=== PATIENT | male | born 1960 | race Caucasian/White ===

== ENCOUNTER 2017-07-22 09:16 | Emergency (ER) | payer OTHER ==
[2017-07-22 09:39] VITALS: BP 129/87; PULSE 80; TEMP 98.2; BMI 31.3
--- NOTE | 2017-07-22 10:22 | PDOC ---
History of Present Illness - General Chief Complaint: Injury Stated Complaint: RT FINGER INFECTION Time Seen by Provider: 07/22/17 10:05 History Source: Patient Exam Limitations: No Limitations - History of Present Illness Initial Comments: 07/22/17 10:20 CHIEF COMPLAINT: Right fourth Finger injury HISTORY OF PRESENT ILLNESS: Patient is a 56-year-old male, history of chronic pain reports on Thursday slipped and fell and jammed his right finger. Now with pain with range of motion, bruising to distal right fourth finger. Denies any other injury or complaint 07/22/17 10:22 Severity: reports: moderate Past History - Past Medical History Allergies/Adverse Reactions: Allergies Allergy/AdvReac Type Severity Reaction Status Date / Time No Known Allergies Allergy Verified 07/22/17 10:08 Home Medications: Ambulatory Orders Buprenorphine HCl/Naloxone HCl [Suboxone 8 mg-2 mg Sl Tablets] 1 each SL ASDIR 07/22/17 Gabapentin [Neurontin -] 300 mg PO Q8H 07/22/17 COPD: No DVT: No Dementia: No Diabetes: No - Surgical History Abdominal Surgery: Yes (Right inguinal) GI Surgery: Yes (Partial nephrectomy) - Immunization History Immunization Up to Date: Yes - Suicide/Smoking/Psychosocial Hx Smoking History: Current every day smoker Number of Cigarettes Smoked Daily: 10 Information on smoking cessation initiated: No Hx Alcohol Use: No Drug/Substance Use Hx: No Substance Use Type: None Review of Systems - Review of Systems Constitutional: No: Symptoms Reported HEENTM: No: Symptoms Reported Respiratory: No: Symptoms reported Cardiac (ROS): No: Symptoms Reported ABD/GI: No: Symptoms Reported : No: Symptoms Reported Musculoskeletal: Yes: Joint Pain, Joint Swelling Integumentary: Yes: Bruising. No: Erythema Neurological: No: Symptoms reported, Paresthesia, Tingling, Tremors All Other Systems: Reviewed and Negative *Physical Exam - Vital Signs Last Vital Signs Temp Pulse Resp BP Pulse Ox 98.2 F 80 18 129/87 94 L 07/22/17 09:33 07/22/17 09:33 07/22/17 09:33 07/22/17 09:33 07/22/17 09:33 - Physical Exam General Appearance: Yes: Appropriately Dressed. No: Apparent Distress Neck: negative: Tender lateral, Tender midline Respiratory/Chest: positive: Lungs Clear, Normal Breath Sounds Cardiovascular: positive: Regular Rhythm, Regular Rate Musculoskeletal: positive: Decreased Range of Motion Extremity: positive: Swelling, Erythema Integumentary: positive: Dry, Erythema, Swelling (right fourth finger), Bruising Neurologic: positive: Alert, Normal Mood/Affect ED Treatment Course - RADIOLOGY Radiology Studies Ordered: Category Date Time Status HAND- RIGHT [RAD] Stat Radiology 07/22/17 10:12 Taken Medical Decision Making - Medical Decision Making 07/22/17 10:22 A/P: Patient here for evaluation of injury to right fourth finger, sent to x- ray. 07/22/17 11:56 Splint placed to right fourth finger, x-ray is negative, splint to finger, explained to patient he should take Motrin as needed for pain, follow-up as needed. *DC/Admit/Observation/Transfer Diagnosis at time of Disposition: Finger injury Qualifiers: Encounter type: initial encounter Laterality: right Qualified Code(s): S69.91XA - Unspecified injury of right wrist, hand and finger(s), initial encounter - Discharge Dispostion Disposition: HOME Condition at time of disposition: Stable Admit: No - Referrals Referrals: Kwan Campuzano MD [Staff Physician] - - Patient Instructions Additional Instructions: 1. Please return to the emergency department with any redness, swelling, increased pain, or any other concerns. 2. Keep splint on. 3. Please follow up in the office of Dr. Campuzano within a week if pain persists. 4. No weightbearing 5. Ice and elevate when at rest. 6. Motrin for pain - Post Discharge Activity Forms/Work/School Notes: Back to Work
== END 2017-07-22 12:02 | disposition home or self-care (01) ==
LOC: JER 09:16 → JERFT 09:16
PROC: 2W3JX1Z Immobilization of Right Finger using Splint (ICD-10-PCS; principal; 2017-07-22)
DX: S69.91XA Unspecified injury of right wrist, hand and finger(s), initial encounter (principal); V98.8XXA Other specified transport accidents, initial encounter; Y93.89 Activity, other specified; Y92.89 Other specified places as the place of occurrence of the external cause; G89.29 Other chronic pain; F17.210 Nicotine dependence, cigarettes, uncomplicated
CPT/HCPCS: 73130-TC-RT-FY; 99281-25